=== PATIENT | male | born 2000 | race Caucasian/White ===

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

== ENCOUNTER 2018-07-10 17:30 | Emergency (ER) | payer OTHER ==
[~2018-07-10] VITALS: Ht 172.7 cm; Wt 72.1 kg
[2018-07-10 17:50] VITALS: Ht 172.7 cm; Wt 72.1 kg
[2018-07-10 19:31] VITALS: BP 135/80
== END 2018-07-10 19:31 | disposition home or self-care (01) ==
LOC: ED 17:30
DX: F41.0 Panic disorder [episodic paroxysmal anxiety] (principal)
CPT/HCPCS: J2060

== ENCOUNTER 2018-08-06 20:29 | Emergency (ER) | payer OTHER ==
[~2018-08-06] VITALS: Ht 170.2 cm; Wt 77.1 kg
[2018-08-06 20:32] VITALS: Ht 170.2 cm; Wt 77.1 kg
[2018-08-06 21:37] LABS: AMPHETAMINE QUAL UR NONE DETECTED (See below)
[2018-08-06 22:34] VITALS: BP 130/64
== END 2018-08-06 22:34 | disposition home or self-care (01) ==
LOC: ED 20:29
PROVIDERS: Emergency Medicine
DX: S01.81XA Laceration without foreign body of other part of head, initial encounter (principal); G40.909 Epilepsy, unspecified, not intractable, without status epilepticus; F41.9 Anxiety disorder, unspecified; X58.XXXA Exposure to other specified factors, initial encounter; Y93.89 Activity, other specified; Y92.89 Other specified places as the place of occurrence of the external cause; Y99.8 Other external cause status
CPT/HCPCS: 82962; J2001

== ENCOUNTER 2020-06-17 09:25 | Emergency (ER) | payer OTHER ==
[~2020-06-17] VITALS: Ht 175.3 cm; Wt 70.3 kg
[2020-06-17 09:26] VITALS: Ht 175.3 cm; Wt 70.3 kg
[2020-06-17 10:03] VITALS: BP 106/54
== END 2020-06-17 10:03 | disposition home or self-care (01) ==
LOC: ED 09:25
DX: S00.33XA Contusion of nose, initial encounter (principal); X58.XXXA Exposure to other specified factors, initial encounter; Y93.89 Activity, other specified; Y92.89 Other specified places as the place of occurrence of the external cause; Y99.8 Other external cause status